=== PATIENT | female | born 1960 | race Caucasian/White ===

== ENCOUNTER 2025-05-18 14:18 | Emergency (ER) | payer MEDICARE, OTHER ==
[2025-05-18] MEDS ORDERED: Sodium Chloride 0.9% 10 ML Syringe FLUSH PRN (14:26)
[2025-05-18] MEDS: Ondansetron 4 MG/2 ML SDV IVPUSH ONE (14:42)
[2025-05-18 14:43] LABS: BASOPHILS ABSOLUTE AUTO 0.0 x10^3/uL (0.0-0.2); BASOPHILS PERCENT AUTO 0.2 % (0.2-1.2); EOSINOPHILS ABSOLUTE AUTO 0.0 x10^3/uL (0.0-0.5); EOSINOPHILS PERCENT AUTO 0.1 % (0.0-4.0); IMMATURE GRAN ABSOLUTE AUTO 0.02 x10^3/uL (0.00-0.07); IMMATURE GRAN PERCENT AUTO 0.20 % (0.00-0.43); LYMPHOCYTES ABSOLUTE AUTO 0.8 x10^3/uL (1.0-4.8); LYMPHOCYTES PERCENT AUTO 6.5 % (25.0-50.0); MONOCYTES ABSOLUTE AUTO 0.2 x10^3/uL (0.0-0.8); MONOCYTES PERCENT AUTO 1.6 % (2.0-11.0); NEUTROPHILS ABSOLUTE AUTO 11.7 x10^3/uL (1.8-7.7); NEUTROPHILS PERCENT AUTO 91.4 % (50.0-80.0); PLATELET COUNT,PLT 248 x10^3/uL (130-400); RED BLOOD CELL COUNT 5.06 x10^6/uL (4.00-5.50); WHITE BLOOD CELL COUNT,WBC 12.8 x10^3/uL (4.0-10.0)
[2025-05-18 15:00] LABS: D-DIMER QUANTITATIVE 3.59 mg/LFEU (<=0.58); INR 0.9 (0.9-1.1); PTT,PARTIAL THROMBOPLSTIN TIME 22.4 SEC (23.5-33.2)
[2025-05-18 15:08] LABS: A/G RATIO 1.19; ALANINE AMINOTRANSFERASE,ALT 233 U/L (14-59); ASPARTATE AMNIOTRANSFERASE,AST 228 U/L (15-37); BILIRUBIN TOTAL 1.6 mg/dL (0.2-1.0); BLOOD UREA NITROGEN,BUN 13 mg/dL (7-18); CARBON DIOXIDE,CO2 31 mmol/L (21-32); CHLORIDE,CL 103 mmol/L (98-107); CREATININE 1.1 mg/dL (0.55-1.02); ESTIMATED GFR 56 mL/min (>=60); GLUCOSE RANDOM 156 mg/dL (70-99); POTASSIUM,K 3.8 mmol/L (3.5-5.1); PRO B-TYPE NATRIUR PEPT,BNPPRO 93 pg/mL (<=125); PROTEIN TOTAL,TP 7.0 g/dL (6.4-8.2); SODIUM,NA 143 mmol/L (136-145)
[2025-05-18 15:18] LABS: GLUCOSE,URINE NEGATIVE (NEGATIVE); OCCULT BLOOD,URINE SMALL (NEGATIVE)
[2025-05-18 15:21] LABS: APPEARANCE,URINE SLIGHTLY CLOUDY (CLEAR)
[2025-05-18 15:23] LABS: SQUAMOUS EPITHELIAL CELLS,UR FEW /HPF (NOT SEEN)
[2025-05-18] MEDS: Iopamidol 755 Mg/ML 100 ML Bottle IVPUSH ONE (15:54)
[2025-05-18] MEDS: Ketorolac 15 MG/ML SDV IVPUSH ONE (16:45)
== END 2025-05-18 16:54 | disposition home or self-care (01) ==
LOC: VM.ED 14:18
DX: K81.9 Cholecystitis, unspecified (principal); F17.200 Nicotine dependence, unspecified, uncomplicated; Z88.5 Allergy status to narcotic agent
CPT/HCPCS: 71045; 71275; 80053; 81001; 83880; 85025; 85379; 85610; 85730; 86140; 96374; 96375; 96376; 99284; J1790; J1885; J2405; Q9967; J1171